=== PATIENT | male | born 1970 | race American Indian/Alaskan Native ===

== ENCOUNTER 2019-05-17 09:08 | Emergency (ER) | payer OTHER ==
[2019-05-17] MEDS ORDERED: CATAPRES PO ONE (10:02)
--- NOTE | 2019-05-17 10:02 | Emergency Department Report ---
ED Dysuria HPI - HPI Chief Complaint: Urogenital-Male Stated Complaint: PELVIC PAIN Time Seen by Provider: 05/17/19 10:01 Duration: 3 Days Location of Discomfort: Suprapubic Severity: Mild Symptoms: Dysuria: Yes, Frequency: No, Suprapubic Pain: No, Flank Pain: No, Fever: No, Hematuria: No, Abdominal Pain: No, Previous UTI's: No Other History: Patient is a 49-year-old male comes to the ER complaining of vaginal discharge and dysuria after having unprotected sex. no testicular pain. He also states his blood pressures been elevated in the years out of his blood pressure medicine. 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 No headache, no chest pain, no sob. But his primary care had never given him a new prescription. Patient denies any surgical history. ED Review of Systems ROS: Stated complaint: PELVIC PAIN Other details as noted in HPI Comment: All other systems reviewed and negative ED Past Medical Hx - Past Medical History Previous Medical History?: No Hx Hypertension: Yes - Surgical History Past Surgical History?: No - Family History Family history: no significant - Social History Smoking Status: Current Every Day Smoker Substance Use Type: None - Medications Home Medications: Home Medications Medication Instructions Recorded Confirmed Last Taken Type amLODIPine [Norvasc] 10 mg PO DAILY #30 tab 05/17/19 Unknown Rx Dysuria Exam - Exam General: Vital signs noted. No distress. Alert and acting appropriately. Exam: WDWN patient in NAD. VS per RN flow sheet. Alert and oriented to person, place and time. neuro intact without deficit. S1-S2. No S3 or S4. No systolic or diastolic murmur. No JVD. No pitting edema. Lungs clear to a uscultation bilaterally anteriorly and posteriorly. Abdomen soft nontender bowel soundsx4. Moves all extremities well. Mood and affect appropriate. ED Course Vital Signs 05/17/19 09:19 Temperature 98.7 F Pulse Rate 113 H Respiratory 18 Rate Blood Pressure 181/115 O2 Sat by Pulse 100 Oximetry ED Medical Decision Making - Medical Decision Making medicated for clonidine for bp neuro intact educated on the need to follow up with pcp because of bp being elevated ua noted empiric treatment given his symptoms and unprotected sex- public health risk discussed with pt safe sex no testicular pain no fever no cva tenderness no abd pain abd snt on exam. dc home with pcp and rx for norvasc and dash diet instructions. Vital Signs 05/17/19 05/17/19 09:19 10:12 Temperature 98.7 F Pulse Rate 113 H 91 H Respiratory 18 Rate Blood Pressure 181/115 167/114 O2 Sat by Pulse 100 Oximetry Critical care attestation.: If time is entered above; I have spent that time in minutes in the direct care of this critically ill patient, excluding procedure time. ED Disposition Clinical Impression: Concern about STD in male without diagnosis, Hypertension, Nonadherence to medication Disposition: DC-01 TO HOME OR SELFCARE Is pt being admited?: No Does the pt Need Aspirin: No Condition: Stable Instructions: Hypertension (ED), DASH Eating Plan (ED), Safe Sex (ED) Additional Instructions: DIET TOLERATED MEDS ORDERED TODAY IN ER FOLLOW INSTRUCTIONS ON THE BOTTLE FOLLOW UP PCP WITHIN 48 HOURS TO ENSURE YOU ARE GETTING BETTER ACTIVITY TOLERATED MOTRIN OR TYLENOL FOR PAIN OR FEVER RETURN TO THE ER FOR WORSENING SYMPTOMS NOT RELIEVED BY YOUR MEDICATIONS. FOLLOW UP WITH PCP REFERRAL BELOW FOLLOW YOUR BLOOD PRESSURE AND RECORD SO PCP HAS A RECORD AND CHANGE YOUR MEDICATION APPROPRIATELY Referrals: MIKA STEWART MD [Staff Physician] - 3-5 Days MARIA G THOMPSON MD [Staff Physician] - 3-5 Days [facility] [Outside] - 3-5 Days Time of Disposition: 10:25
[2019-05-17 10:05] LABS: Bacteria,Urine 1+ /HPF (Negative); Bilirubin,Urine NEG (Negative); Blood,Urine SM (Negative); Calcium Oxalate Crystals,Urine 3+; Color,Urine Yellow (Yellow); Mucus,Urine 2+ /HPF
[2019-05-17 10:10] LABS: WBC,Urine > 182.0 /HPF (0.0-6.0)
[2019-05-17] MEDS ORDERED: ROCEPHIN IM ONE (10:18)
[2019-05-17] MEDS ORDERED: ZITHROMAX PO ONE (10:18)
[2019-05-17] MEDS ORDERED: XYLOCAINE 1% MPF 5 mL INFILTRATI ONE (10:18)
[2019-05-17 11:20] VITALS: BP 161/114
== END 2019-05-17 11:20 | disposition home or self-care (01) ==
LOC: ED 09:08
DX: R30.0 Dysuria (principal); R10.2 Pelvic and perineal pain; R36.9 Urethral discharge, unspecified; I10 Essential (primary) hypertension
CPT/HCPCS: 81001; 87591; 96372; 99283; J0696